=== PATIENT | female | born 1950 | race Caucasian/White ===

== ENCOUNTER → 2016-07-20 | Outpatient (CLI) | payer MEDICARE, OTHER ==
[~2016-07-20] MED LIST: ATENOLOL25 MG PO; BECONASE AQ NA42 MCG NAS; BONIVA150 MG PO; CALTRATE-600 W600 MG PO; CYCLOBENZAPRINE5 M1 PO; ESTROBLEND; EVENING PRIMROSE OIL PO; FLEXERIL 1010 MG/TAB PO; FLEXERIL5 MG PO; HCTZ 25MG25 MG PO; HYDROXYURE500 MG/CAP PO; K-99595 MG PO; LEVOTHYROXIN0.112 MG PO; LEVOXYL0.1 MG PO; MAGNESIUM200 MG PO; MOTRIN 600600 MG/TAB PO; MULTI VITAMINS1 TAB PO; MULTIVITAMIN1 TA1 PO; NORCO 325 MG-51 TAB PO; OSTEO-BI-FLEX 21 TAB PO; RITE AID KRILL500 MG PO; SINGULAIR 110 MG/TAB PO; VITAMIN D3400 IU PO; [UNRECOGNIZED DRUG - CODE]; [UNRECOGNIZED DRUG - OTHER]; [UNRECOGNIZED DRUG - OTHER]; [UNRECOGNIZED DRUG - OTHER]; [UNRECOGNIZED DRUG - OTHER]; [UNRECOGNIZED DRUG - OTHER] PO
[2016-07-20 11:27] LABS: ADD PATHOLOGY DIFF REVIEW NO
[2016-07-20 11:32] LABS: HEMOGLOBIN 12.9 g/dl (12.5-16.0); MEAN CELL VOLUME 92 fl (80.0-100.0); MEAN CORPUSCULAR HEMOGLOBIN 31 pg (27.0-31.0); MEAN CORPUSCULAR HGB CONC 33 g/dl (33.0-37.0); MEAN PLATELET VOLUME 9.7 fl (7.4-10.4); PLATELET COUNT 578 K/mm3 (130-400); REDCELL DISTRIBUTION WIDTH-CV 12.9 % (11.5-14.5); WHITE BLOOD COUNT 4.4 K/mm3 (4.8-10.8)
[2016-07-20 11:40] LABS: HEMATOCRIT 38.8 % (37.0-47.0)
[2016-07-20 11:48] LABS: ADJUSTED CALCIUM 9.1 mg/dL (8.4-10.2); ALBUMIN 4.7 gm/dL (3.5-5.0); BILIRUBIN,TOTAL 0.4 mg/dL (0.0-1.0); CALCIUM 9.7 mg/dL (8.4-10.2); CREATININE, serum 0.69 mg/dL (0.52-1.25); TOTAL PROTEIN 7.9 gm/dL (6.4-8.2)
[2016-07-22 15:57] LABS: BAND 1 % (0-10); EOSINOPHIL 4 % (0-4); NEUTROPHILS 62 % (42.0-75.2); PLATELET ESTIMATE NORMAL (NORMAL); TOTAL CELLS COUNTED 100
== END ==
LOC: COL.LAB 11:16
PROVIDERS: Internal Medicine
DX: M06.4 Inflammatory polyarthropathy (principal); Z79.899 Other long term (current) drug therapy; D47.Z9 Other specified neoplasms of uncertain behavior of lymphoid, hematopoietic and related tissue

== ENCOUNTER → 2016-08-17 | Outpatient (CLI) | payer MEDICARE, OTHER ==
[2016-08-17 11:15] LABS: ADD PATHOLOGY DIFF REVIEW NO
[2016-08-17 11:34] LABS: MEAN CELL VOLUME 91 fl (80.0-100.0); MEAN CORPUSCULAR HEMOGLOBIN 30 pg (27.0-31.0); MEAN CORPUSCULAR HGB CONC 33 g/dl (33.0-37.0)
[2016-08-17 11:46] LABS: HEMOGLOBIN 12.7 g/dl (12.5-16.0); MEAN PLATELET VOLUME 9.5 fl (7.4-10.4); PLATELET COUNT 581 K/mm3 (130-400); REDCELL DISTRIBUTION WIDTH-CV 12.9 % (11.5-14.5); WHITE BLOOD COUNT 4.5 K/mm3 (4.8-10.8)
[2016-08-17 11:48] LABS: HEMATOCRIT 38.4 % (37.0-47.0)
[2016-08-17 12:02] LABS: ADJUSTED CALCIUM 9.6 mg/dL (8.4-10.2); ALBUMIN 4.5 gm/dL (3.5-5.0); BILIRUBIN,TOTAL 0.5 mg/dL (0.0-1.0); CREATININE, serum 0.63 mg/dL (0.52-1.25); POTASSIUM 4.7 mmol/L (3.4-5.0); TOTAL PROTEIN 7.5 gm/dL (6.4-8.2)
[2016-08-17 12:08] LABS: BAND 1 % (0-10); BASOPHIL 3 % (0-2); EOSINOPHIL 9 % (0-4); NEUTROPHILS 56 % (42.0-75.2); PLATELET ESTIMATE INCREASED (NORMAL); TOTAL CELLS COUNTED 100
== END ==
LOC: COL.LAB 10:52
PROVIDERS: Internal Medicine
DX: D47.Z9 Other specified neoplasms of uncertain behavior of lymphoid, hematopoietic and related tissue (principal); M06.4 Inflammatory polyarthropathy; Z79.899 Other long term (current) drug therapy

== ENCOUNTER → 2016-09-28 | Outpatient (CLI) | payer MEDICARE, OTHER ==
[2016-09-28 11:51] LABS: ADD PATHOLOGY DIFF REVIEW NO
[2016-09-28 12:05] LABS: HEMOGLOBIN 13.9 g/dl (12.5-16.0); MEAN CELL VOLUME 93 fl (80.0-100.0); MEAN CORPUSCULAR HEMOGLOBIN 31 pg (27.0-31.0); MEAN CORPUSCULAR HGB CONC 33 g/dl (33.0-37.0); MEAN PLATELET VOLUME 9.5 fl (7.4-10.4); PLATELET COUNT 623 K/mm3 (130-400); RED BLOOD COUNT 4.51 M/mm3 (4.10-5.30); REDCELL DISTRIBUTION WIDTH-CV 13.7 % (11.5-14.5); WHITE BLOOD COUNT 10.1 K/mm3 (4.8-10.8)
[2016-09-28 12:09] LABS: ALBUMIN 4.3 gm/dL (3.5-5.0); BILIRUBIN,TOTAL 0.5 mg/dL (0.0-1.0); CALCIUM 9.2 mg/dL (8.4-10.2); CREATININE, serum 0.67 mg/dL (0.52-1.25); POTASSIUM 3.6 mmol/L (3.4-5.0); TOTAL PROTEIN 7.6 gm/dL (6.4-8.2)
[2016-09-28 12:12] LABS: HEMATOCRIT 41.9 % (37.0-47.0)
[2016-09-28 12:40] LABS: BASOPHIL 1 % (0-2); NEUTROPHILS 81 % (42.0-75.2); TOTAL CELLS COUNTED 100
[2016-09-28 12:41] LABS: EOSINOPHIL 0 % (0-4)
== END ==
LOC: COL.LAB 10:55
PROVIDERS: Internal Medicine
DX: M06.4 Inflammatory polyarthropathy (principal); Z79.899 Other long term (current) drug therapy; D47.Z9 Other specified neoplasms of uncertain behavior of lymphoid, hematopoietic and related tissue

== ENCOUNTER → 2016-10-12 | Outpatient (CLI) | payer MEDICARE ==
[2016-10-12 11:21] LABS: ADD PATHOLOGY DIFF REVIEW NO
[2016-10-12 11:34] LABS: HEMOGLOBIN 12.8 g/dl (12.5-16.0); MEAN CELL VOLUME 93 fl (80.0-100.0); MEAN CORPUSCULAR HEMOGLOBIN 31 pg (27.0-31.0); MEAN CORPUSCULAR HGB CONC 33 g/dl (33.0-37.0); MEAN PLATELET VOLUME 9.2 fl (7.4-10.4); PLATELET COUNT 523 K/mm3 (130-400); RED BLOOD COUNT 4.16 M/mm3 (4.10-5.30); WHITE BLOOD COUNT 6.9 K/mm3 (4.8-10.8)
[2016-10-12 11:43] LABS: HEMATOCRIT 38.5 % (37.0-47.0)
[2016-10-12 11:47] LABS: ADJUSTED CALCIUM 8.7 mg/dL (8.4-10.2); BILIRUBIN,TOTAL 0.6 mg/dL (0.0-1.0); CALCIUM 8.7 mg/dL (8.4-10.2); CREATININE, serum 0.6 mg/dL (0.52-1.25); POTASSIUM 3.8 mmol/L (3.4-5.0); TOTAL PROTEIN 6.6 gm/dL (6.4-8.2)
[2016-10-12 13:22] LABS: BAND 3 % (0-10); EOSINOPHIL 3 % (0-4); NEUTROPHILS 67 % (42.0-75.2); TOTAL CELLS COUNTED 100
[2016-10-12 13:23] LABS: HYPOCHROMIA 1+; STOMATOCYTE 1+
== END ==
LOC: COL.LAB 11:00
PROVIDERS: Family Medicine
DX: D47.1 Chronic myeloproliferative disease (principal); M06.4 Inflammatory polyarthropathy; Z79.899 Other long term (current) drug therapy

== ENCOUNTER → 2016-11-30 | Outpatient (CLI) | payer MEDICARE, OTHER ==
[2016-11-30 11:15] LABS: ADD PATHOLOGY DIFF REVIEW NO
[2016-11-30 11:24] LABS: HEMOGLOBIN 13.6 g/dl (12.5-16.0); MEAN CELL VOLUME 94 fl (80.0-100.0); MEAN CORPUSCULAR HEMOGLOBIN 31 pg (27.0-31.0); MEAN CORPUSCULAR HGB CONC 33 g/dl (33.0-37.0); MEAN PLATELET VOLUME 9.7 fl (7.4-10.4); PLATELET COUNT 461 K/mm3 (130-400); RED BLOOD COUNT 4.41 M/mm3 (4.10-5.30); REDCELL DISTRIBUTION WIDTH-CV 13.2 % (11.5-14.5); WHITE BLOOD COUNT 6.1 K/mm3 (4.8-10.8)
[2016-11-30 11:41] LABS: ADJUSTED CALCIUM 8.5 mg/dL (8.4-10.2); ALBUMIN 4.5 gm/dL (3.5-5.0); BILIRUBIN,TOTAL 0.6 mg/dL (0.0-1.0); CALCIUM 8.9 mg/dL (8.4-10.2); CREATININE, serum 0.6 mg/dL (0.52-1.25); POTASSIUM 3.8 mmol/L (3.4-5.0); TOTAL PROTEIN 7.5 gm/dL (6.4-8.2)
[2016-11-30 12:25] LABS: EOSINOPHIL 6 % (0-4); NEUTROPHILS 63 % (42.0-75.2); PLATELET ESTIMATE INCREASED (NORMAL); TOTAL CELLS COUNTED 100
[2016-11-30 13:47] LABS: HEMATOCRIT 41.6 % (37.0-47.0)
== END ==
LOC: COL.LAB 10-05 16:23
PROVIDERS: Internal Medicine
DX: M06.4 Inflammatory polyarthropathy (principal); Z79.899 Other long term (current) drug therapy

== ENCOUNTER → 2017-01-11 | Outpatient (CLI) | payer MEDICARE, OTHER ==
[2017-01-11 11:29] LABS: ADD PATHOLOGY DIFF REVIEW NO
[2017-01-11 11:46] LABS: MEAN CELL VOLUME 93 fl (80.0-100.0); MEAN CORPUSCULAR HEMOGLOBIN 31 pg (27.0-31.0)
[2017-01-11 11:52] LABS: HEMOGLOBIN 13.2 g/dl (12.5-16.0); MEAN CORPUSCULAR HGB CONC 33 g/dl (33.0-37.0); MEAN PLATELET VOLUME 9.9 fl (7.4-10.4); PLATELET COUNT 420 K/mm3 (130-400); RED BLOOD COUNT 4.27 M/mm3 (4.10-5.30); REDCELL DISTRIBUTION WIDTH-CV 13.1 % (11.5-14.5)
[2017-01-11 11:56] LABS: HEMATOCRIT 39.9 % (37.0-47.0)
[2017-01-11 12:17] LABS: ADJUSTED CALCIUM 9.1 mg/dL (8.4-10.2); ALBUMIN 4.6 gm/dL (3.5-5.0); BILIRUBIN,TOTAL 0.4 mg/dL (0.0-1.0); CALCIUM 9.6 mg/dL (8.4-10.2); CREATININE, serum 0.58 mg/dL (0.52-1.25); POTASSIUM 5.3 mmol/L (3.4-5.0); TOTAL PROTEIN 7.6 gm/dL (6.4-8.2)
[2017-01-11 12:20] LABS: EOSINOPHIL 11 % (0-4); NEUTROPHILS 42 % (42.0-75.2); PLATELET ESTIMATE NORMAL (NORMAL); TOTAL CELLS COUNTED 100
== END ==
LOC: COL.LAB 11:16
PROVIDERS: Internal Medicine
DX: Z51.81 Encounter for therapeutic drug level monitoring (principal); M06.4 Inflammatory polyarthropathy; C94.6 Myelodysplastic disease, not elsewhere classified; Z79.899 Other long term (current) drug therapy

== ENCOUNTER 2017-02-01 13:15 | Outpatient (RCR) | payer MEDICARE, OTHER | END 2017-02-06 12:47 | disposition still patient (30) | LOC: WSPT 13:15 | DX: M75.81 Other shoulder lesions, right shoulder (principal); M77.9 Enthesopathy, unspecified | CPT/HCPCS: G8984-GP; G8985-GP; G8986-GP; G8987-GO; G8988-GO; G8989-GO ==

== ENCOUNTER → 2017-02-16 | Outpatient (CLI) | payer MEDICARE, OTHER ==
[2017-02-16 11:23] LABS: ADD PATHOLOGY DIFF REVIEW NO
[2017-02-16 11:28] LABS: HEMOGLOBIN 12.1 g/dl (12.5-16.0); MEAN CELL VOLUME 93 fl (80.0-100.0); MEAN CORPUSCULAR HEMOGLOBIN 31 pg (27.0-31.0); MEAN CORPUSCULAR HGB CONC 33 g/dl (33.0-37.0); MEAN PLATELET VOLUME 9.8 fl (7.4-10.4); PLATELET COUNT 413 K/mm3 (130-400); REDCELL DISTRIBUTION WIDTH-CV 13.4 % (11.5-14.5); WHITE BLOOD COUNT 4.4 K/mm3 (4.8-10.8)
[2017-02-16 11:46] LABS: HEMATOCRIT 36.2 % (37.0-47.0)
[2017-02-16 12:04] LABS: BASOPHIL 2 % (0-2); EOSINOPHIL 11 % (0-4); NEUTROPHILS 46 % (42.0-75.2); TOTAL CELLS COUNTED 100
[2017-02-16 12:05] LABS: ANISOCYTOSIS 1+; PLATELET ESTIMATE NORMAL (NORMAL)
== END ==
LOC: COL.LAB 02-15 16:17
PROVIDERS: Internal Medicine
DX: C94.6 Myelodysplastic disease, not elsewhere classified (principal)

== ENCOUNTER → 2017-03-21 | Outpatient (CLI) | payer MEDICARE, OTHER ==
[2017-03-21 13:29] LABS: ADD PATHOLOGY DIFF REVIEW NO
[2017-03-21 13:41] LABS: MEAN CELL VOLUME 93 fl (80.0-100.0); MEAN CORPUSCULAR HEMOGLOBIN 31 pg (27.0-31.0); MEAN CORPUSCULAR HGB CONC 33 g/dl (33.0-37.0); MEAN PLATELET VOLUME 9.5 fl (7.4-10.4); PLATELET COUNT 481 K/mm3 (130-400); RED BLOOD COUNT 3.86 M/mm3 (4.10-5.30); REDCELL DISTRIBUTION WIDTH-CV 13.6 % (11.5-14.5); WHITE BLOOD COUNT 5.8 K/mm3 (4.8-10.8)
[2017-03-21 13:55] LABS: ALANINE AMINOTRANSFERASE 35 U/L (9-52); ALBUMIN 4.8 gm/dL (3.5-5.0); ALKALINE PHOSPHATASE 81 U/L (50-136); ANION GAP 10 mmol/L (7-16); BILIRUBIN,TOTAL 0.5 mg/dL (0.0-1.0); BLOOD UREA NITROGEN 4 mg/dL (7-17); CALCIUM 9.6 mg/dL (8.4-10.2); CARBON DIOXIDE 27 mmol/L (22-30); CHLORIDE 99 mmol/L (98-107); CREATININE, serum 0.57 mg/dL (0.52-1.25); GLUCOSE 89 mg/dL (74-106); POTASSIUM 4.5 mmol/L (3.4-5.0); SODIUM 136 mmol/L (137-145); TOTAL PROTEIN 7.7 gm/dL (6.4-8.2)
[2017-03-21 14:00] LABS: C-REACTIVE PROTEIN < 0.5 mg/dL (0.0-0.9)
[2017-03-21 14:06] LABS: ERYTHROCYTE SEDIMENTATION RATE 9 mm/hr (0-30)
[2017-03-21 14:20] LABS: BAND 1 % (0-10); BASOPHIL 2 % (0-2); EOSINOPHIL 9 % (0-4); NEUTROPHILS 46 % (42.0-75.2); PLATELET ESTIMATE INCREASED (NORMAL); TOTAL CELLS COUNTED 100
[2017-03-21 14:22] LABS: OVALOCYTES 1+
== END ==
LOC: COL.LAB 13:03
PROVIDERS: Internal Medicine
DX: D47.1 Chronic myeloproliferative disease (principal)

== ENCOUNTER → 2017-05-30 | Outpatient (CLI) | payer MEDICARE, OTHER ==
[2017-05-30 12:06] LABS: ADD PATHOLOGY DIFF REVIEW NO
[2017-05-30 12:18] LABS: MEAN CELL VOLUME 98 fl (80.0-100.0); MEAN CORPUSCULAR HGB CONC 34 g/dl (33.0-37.0); MEAN PLATELET VOLUME 9.3 fl (7.4-10.4); PLATELET COUNT 472 K/mm3 (130-400); RED BLOOD COUNT 3.48 M/mm3 (4.10-5.30); WHITE BLOOD COUNT 4.2 K/mm3 (4.8-10.8)
[2017-05-30 12:19] LABS: HEMOGLOBIN 11.6 g/dl (12.5-16.0); MEAN CORPUSCULAR HEMOGLOBIN 33 pg (27.0-31.0)
[2017-05-30 12:24] LABS: HEMATOCRIT 34.1 % (37.0-47.0)
[2017-05-30 12:35] LABS: EOSINOPHIL 3 % (0-4); LYMPHOCYTE 44 % (20.0-51.0); NEUTROPHILS 48 % (42.0-75.2); PLATELET ESTIMATE INCREASED (NORMAL); TOTAL CELLS COUNTED 100
[2017-05-30 12:43] LABS: ERYTHROCYTE SEDIMENTATION RATE 6 mm/hr (0-30)
[2017-05-30 12:51] LABS: ADJUSTED CALCIUM 8.6 mg/dL (8.4-10.2); ALANINE AMINOTRANSFERASE 37 U/L (9-52); ALBUMIN 4.9 gm/dL (3.5-5.0); ALKALINE PHOSPHATASE 89 U/L (50-136); ANION GAP 11 mmol/L (7-16); BILIRUBIN,TOTAL 0.2 mg/dL (0.0-1.0); BLOOD UREA NITROGEN 7 mg/dL (7-17); C-REACTIVE PROTEIN < 0.5 mg/dL (0.0-0.9); CALCIUM 9.3 mg/dL (8.4-10.2); CARBON DIOXIDE 26 mmol/L (22-30); CHLORIDE 95 mmol/L (98-107); CREATININE, serum 0.62 mg/dL (0.52-1.25); GLUCOSE 104 mg/dL (74-106); POTASSIUM 4.1 mmol/L (3.4-5.0); SODIUM 132 mmol/L (137-145); TOTAL PROTEIN 7.6 gm/dL (6.4-8.2)
== END ==
LOC: COL.LAB 11:53
PROVIDERS: Internal Medicine
DX: C94.6 Myelodysplastic disease, not elsewhere classified (principal)

== ENCOUNTER → 2017-07-18 | Outpatient (CLI) | payer MEDICARE, OTHER ==
[2017-07-18 13:39] LABS: HEMOGLOBIN 12.6 g/dl (12.5-16.0); MEAN CELL VOLUME 99 fl (80.0-100.0); MEAN CORPUSCULAR HEMOGLOBIN 33 pg (27.0-31.0); MEAN CORPUSCULAR HGB CONC 34 g/dl (33.0-37.0); MEAN PLATELET VOLUME 8.9 fl (7.4-10.4); PLATELET COUNT 387 K/mm3 (130-400); REDCELL DISTRIBUTION WIDTH-CV 12.4 % (11.5-14.5)
[2017-07-18 13:47] LABS: HEMATOCRIT 37.6 % (37.0-47.0)
[2017-07-18 13:52] LABS: ALANINE AMINOTRANSFERASE 27 U/L (9-52); ALBUMIN 4.9 gm/dL (3.5-5.0); ALKALINE PHOSPHATASE 73 U/L (50-136); ANION GAP 10 mmol/L (7-16); AST,SGOT 25 U/L (15-37); BILIRUBIN,TOTAL 0.3 mg/dL (0.0-1.0); BLOOD UREA NITROGEN 10 mg/dL (7-17); CALCIUM 9.2 mg/dL (8.4-10.2); CARBON DIOXIDE 27 mmol/L (22-30); CHLORIDE 98 mmol/L (98-107); CREATININE, serum 0.72 mg/dL (0.52-1.25); GLUCOSE 110 mg/dL (74-106); POTASSIUM 4.1 mmol/L (3.4-5.0); SODIUM 135 mmol/L (137-145); TOTAL PROTEIN 7.7 gm/dL (6.4-8.2)
[2017-07-18 13:55] LABS: C-REACTIVE PROTEIN < 0.5 mg/dL (0.0-0.9)
[2017-07-18 14:21] LABS: BAND 11 % (0-10); ERYTHROCYTE SEDIMENTATION RATE 6 mm/hr (0-30); LYMPHOCYTE 48 % (20.0-51.0); NEUTROPHILS 41 % (42.0-75.2); NUCLEATED RED BLOOD CELL 1 (0-6)
[2017-07-18 14:22] LABS: OVALOCYTES 1+; PLATELET ESTIMATE INCREASED (NORMAL)
== END ==
LOC: COL.LAB 06-13 10:36
PROVIDERS: Internal Medicine
DX: M06.4 Inflammatory polyarthropathy (principal); Z79.899 Other long term (current) drug therapy

== ENCOUNTER → 2017-08-15 | Outpatient (CLI) | payer MEDICARE, OTHER ==
[2017-08-15 11:37] LABS: HEMOGLOBIN 12.9 g/dl (12.5-16.0); MEAN CELL VOLUME 99 fl (80.0-100.0); MEAN CORPUSCULAR HEMOGLOBIN 33 pg (27.0-31.0); MEAN CORPUSCULAR HGB CONC 33 g/dl (33.0-37.0); MEAN PLATELET VOLUME 9.2 fl (7.4-10.4); PLATELET COUNT 408 K/mm3 (130-400); RED BLOOD COUNT 3.91 M/mm3 (4.10-5.30); REDCELL DISTRIBUTION WIDTH-CV 12.4 % (11.5-14.5)
[2017-08-15 11:40] LABS: HEMATOCRIT 38.6 % (37.0-47.0)
[2017-08-15 11:56] LABS: ALANINE AMINOTRANSFERASE 33 U/L (9-52); ALBUMIN 4.8 gm/dL (3.5-5.0); ALKALINE PHOSPHATASE 77 U/L (50-136); ANION GAP 11 mmol/L (7-16); AST,SGOT 37 U/L (15-37); BILIRUBIN,TOTAL 0.3 mg/dL (0.0-1.0); BLOOD UREA NITROGEN 9 mg/dL (7-17); CALCIUM 9.2 mg/dL (8.4-10.2); CARBON DIOXIDE 26 mmol/L (22-30); CHLORIDE 94 mmol/L (98-107); CREATININE, serum 0.69 mg/dL (0.52-1.25); EOSINOPHIL 1 % (0-4); GLUCOSE 105 mg/dL (74-106); LYMPHOCYTE 33 % (20.0-51.0); NEUTROPHILS 61 % (42.0-75.2); PLATELET ESTIMATE INCREASED (NORMAL); POTASSIUM 3.9 mmol/L (3.4-5.0); SODIUM 131 mmol/L (137-145); TOTAL PROTEIN 7.5 gm/dL (6.4-8.2)
[2017-08-15 11:57] LABS: C-REACTIVE PROTEIN < 0.5 mg/dL (0.0-0.9)
[2017-08-15 12:07] LABS: ERYTHROCYTE SEDIMENTATION RATE 2 mm/hr (0-30)
== END ==
LOC: COL.LAB 11:09
PROVIDERS: Internal Medicine
DX: Z01.89 Encounter for other specified special examinations (principal)

== ENCOUNTER → 2017-09-19 | Outpatient (CLI) | payer MEDICARE, OTHER ==
[2017-09-19 11:51] LABS: MEAN CELL VOLUME 96 fl (80.0-100.0); MEAN CORPUSCULAR HGB CONC 35 g/dl (33.0-37.0); MEAN PLATELET VOLUME 9.4 fl (7.4-10.4); PLATELET COUNT 386 K/mm3 (130-400); REDCELL DISTRIBUTION WIDTH-CV 12.5 % (11.5-14.5)
[2017-09-19 11:58] LABS: HEMOGLOBIN 11.9 g/dl (12.5-16.0); MEAN CORPUSCULAR HEMOGLOBIN 33 pg (27.0-31.0)
[2017-09-19 12:00] LABS: HEMATOCRIT 34.5 % (37.0-47.0)
[2017-09-19 12:31] LABS: ERYTHROCYTE SEDIMENTATION RATE 1 mm/hr (0-30)
[2017-09-19 12:45] LABS: BASOPHIL 1 % (0-2); EOSINOPHIL 2 % (0-4); LYMPHOCYTE 44 % (20.0-51.0); NEUTROPHILS 49 % (42.0-75.2); PLATELET ESTIMATE NORMAL (NORMAL)
[2017-09-19 13:02] LABS: ALANINE AMINOTRANSFERASE 41 U/L (9-52); ALBUMIN 4.5 gm/dL (3.5-5.0); ALKALINE PHOSPHATASE 76 U/L (50-136); ANION GAP 13 mmol/L (7-16); AST,SGOT 35 U/L (15-37); BILIRUBIN,TOTAL 0.1 mg/dL (0.0-1.0); BLOOD UREA NITROGEN 7 mg/dL (7-17); CALCIUM 8.9 mg/dL (8.4-10.2); CARBON DIOXIDE 26 mmol/L (22-30); CHLORIDE 95 mmol/L (98-107); CREATININE, serum 0.58 mg/dL (0.52-1.25); GLUCOSE 93 mg/dL (74-106); SODIUM 134 mmol/L (137-145); TOTAL PROTEIN 7.5 gm/dL (6.4-8.2)
[2017-09-19 13:04] LABS: C-REACTIVE PROTEIN < 0.5 mg/dL (0.0-0.9); POTASSIUM 4.2 mmol/L (3.4-5.0)
== END ==
LOC: COL.LAB 09:43
PROVIDERS: Internal Medicine
DX: M06.4 Inflammatory polyarthropathy (principal); Z79.899 Other long term (current) drug therapy

== ENCOUNTER → 2017-10-10 | Outpatient (CLI) | payer MEDICARE, OTHER ==
[2017-10-10 11:53] LABS: HEMOGLOBIN 12.1 g/dl (12.5-16.0); MEAN CELL VOLUME 95 fl (80.0-100.0); MEAN CORPUSCULAR HEMOGLOBIN 33 pg (27.0-31.0); MEAN CORPUSCULAR HGB CONC 35 g/dl (33.0-37.0); MEAN PLATELET VOLUME 9.4 fl (7.4-10.4); PLATELET COUNT 455 K/mm3 (130-400); RED BLOOD COUNT 3.68 M/mm3 (4.10-5.30); REDCELL DISTRIBUTION WIDTH-CV 12.5 % (11.5-14.5)
[2017-10-10 12:07] LABS: EOSINOPHIL 1 % (0-4); LYMPHOCYTE 37 % (20.0-51.0); NEUTROPHILS 54 % (42.0-75.2); PLATELET ESTIMATE NORMAL (NORMAL)
[2017-10-10 12:08] LABS: ANISOCYTOSIS 1+
[2017-10-10 12:10] LABS: ALANINE AMINOTRANSFERASE 35 U/L (9-52); ALBUMIN 4.4 gm/dL (3.5-5.0); ALKALINE PHOSPHATASE 75 U/L (50-136); ANION GAP 13 mmol/L (7-16); AST,SGOT 38 U/L (15-37); BILIRUBIN,TOTAL 0.1 mg/dL (0.0-1.0); BLOOD UREA NITROGEN 5 mg/dL (7-17); CALCIUM 8.8 mg/dL (8.4-10.2); CARBON DIOXIDE 25 mmol/L (22-30); CHLORIDE 94 mmol/L (98-107); GLUCOSE 119 mg/dL (74-106); POTASSIUM 4.8 mmol/L (3.4-5.0); SODIUM 132 mmol/L (137-145); TOTAL PROTEIN 7.8 gm/dL (6.4-8.2)
[2017-10-10 12:15] LABS: C-REACTIVE PROTEIN < 0.5 mg/dL (0.0-0.9)
[2017-10-10 12:19] LABS: ERYTHROCYTE SEDIMENTATION RATE 5 mm/hr (0-30)
== END ==
LOC: COL.LAB 11:11
PROVIDERS: Internal Medicine
DX: M06.4 Inflammatory polyarthropathy (principal); Z79.899 Other long term (current) drug therapy

== ENCOUNTER → 2017-11-14 | Outpatient (CLI) | payer MEDICARE, OTHER ==
[2017-11-14 11:52] LABS: HEMOGLOBIN 12.3 g/dl (12.5-16.0); MEAN CELL VOLUME 95 fl (80.0-100.0); MEAN CORPUSCULAR HEMOGLOBIN 33 pg (27.0-31.0); MEAN CORPUSCULAR HGB CONC 35 g/dl (33.0-37.0); MEAN PLATELET VOLUME 9.3 fl (7.4-10.4); PLATELET COUNT 487 K/mm3 (130-400); RED BLOOD COUNT 3.75 M/mm3 (4.10-5.30); REDCELL DISTRIBUTION WIDTH-CV 12.6 % (11.5-14.5)
[2017-11-14 12:00] LABS: HEMATOCRIT 35.6 % (37.0-47.0)
[2017-11-14 12:10] LABS: ALANINE AMINOTRANSFERASE 33 U/L (9-52); ALBUMIN 4.5 gm/dL (3.5-5.0); ALKALINE PHOSPHATASE 64 U/L (50-136); ANION GAP 11 mmol/L (7-16); AST,SGOT 38 U/L (15-37); BILIRUBIN,TOTAL 0.3 mg/dL (0.0-1.0); BLOOD UREA NITROGEN 10 mg/dL (7-17); CALCIUM 9.3 mg/dL (8.4-10.2); CARBON DIOXIDE 27 mmol/L (22-30); CHLORIDE 93 mmol/L (98-107); CREATININE, serum 0.66 mg/dL (0.52-1.25); GLUCOSE 112 mg/dL (74-106); POTASSIUM 4.4 mmol/L (3.4-5.0); SODIUM 132 mmol/L (137-145); TOTAL PROTEIN 7.8 gm/dL (6.4-8.2)
[2017-11-14 12:13] LABS: C-REACTIVE PROTEIN < 0.5 mg/dL (0.0-0.9)
[2017-11-14 13:04] LABS: BAND 3 % (0-10); HYPOCHROMIA 1+; LYMPHOCYTE 38 % (20.0-51.0); NEUTROPHILS 54 % (42.0-75.2); OVALOCYTES 1+; PLATELET ESTIMATE INCREASED (NORMAL)
[2017-11-14 13:10] LABS: ERYTHROCYTE SEDIMENTATION RATE 1 mm/hr (0-30)
== END ==
LOC: COL.LAB 11-07 11:20
PROVIDERS: Internal Medicine
DX: M06.4 Inflammatory polyarthropathy (principal); Z79.899 Other long term (current) drug therapy

== ENCOUNTER → 2017-12-05 | Outpatient (CLI) | payer MEDICARE, OTHER ==
[2017-12-05 11:54] LABS: MEAN CELL VOLUME 96 fl (80.0-100.0); MEAN CORPUSCULAR HEMOGLOBIN 33 pg (27.0-31.0); MEAN CORPUSCULAR HGB CONC 34 g/dl (33.0-37.0); MEAN PLATELET VOLUME 9.3 fl (7.4-10.4); PLATELET COUNT 539 K/mm3 (130-400); RED BLOOD COUNT 3.67 M/mm3 (4.10-5.30); REDCELL DISTRIBUTION WIDTH-CV 12.5 % (11.5-14.5)
[2017-12-05 12:02] LABS: HEMATOCRIT 35.1 % (37.0-47.0)
[2017-12-05 12:07] LABS: ALANINE AMINOTRANSFERASE 32 U/L (9-52); ALBUMIN 4.3 gm/dL (3.5-5.0); ALKALINE PHOSPHATASE 64 U/L (50-136); ANION GAP 15 mmol/L (7-16); AST,SGOT 30 U/L (15-37); BILIRUBIN,TOTAL 0.2 mg/dL (0.0-1.0); BLOOD UREA NITROGEN 7 mg/dL (7-17); CALCIUM 8.6 mg/dL (8.4-10.2); CARBON DIOXIDE 23 mmol/L (22-30); CHLORIDE 94 mmol/L (98-107); CREATININE, serum 0.57 mg/dL (0.52-1.25); GLUCOSE 132 mg/dL (74-106); POTASSIUM 3.8 mmol/L (3.4-5.0); SODIUM 132 mmol/L (137-145); TOTAL PROTEIN 7.4 gm/dL (6.4-8.2)
[2017-12-05 12:09] LABS: C-REACTIVE PROTEIN < 0.5 mg/dL (0.0-0.9)
[2017-12-05 12:13] LABS: BAND 1 % (0-10); EOSINOPHIL 5 % (0-4); LYMPHOCYTE 23 % (20.0-51.0); NEUTROPHILS 68 % (42.0-75.2); PLATELET ESTIMATE INCREASED (NORMAL)
[2017-12-05 12:15] LABS: ERYTHROCYTE SEDIMENTATION RATE 1 mm/hr (0-30)
== END ==
LOC: COL.LAB 11:24
PROVIDERS: Internal Medicine
DX: M06.4 Inflammatory polyarthropathy (principal); Z79.899 Other long term (current) drug therapy

== ENCOUNTER → 2018-01-09 | Outpatient (CLI) | payer MEDICARE, OTHER ==
[2018-01-09 11:29] LABS: MEAN CELL VOLUME 96 fl (80.0-100.0); MEAN CORPUSCULAR HEMOGLOBIN 33 pg (27.0-31.0); MEAN CORPUSCULAR HGB CONC 34 g/dl (33.0-37.0); MEAN PLATELET VOLUME 9.3 fl (7.4-10.4); PLATELET COUNT 445 K/mm3 (130-400); RED BLOOD COUNT 3.66 M/mm3 (4.10-5.30); REDCELL DISTRIBUTION WIDTH-CV 12.5 % (11.5-14.5)
[2018-01-09 11:40] LABS: ALBUMIN 4.6 gm/dL (3.5-5.0); BILIRUBIN,TOTAL 0.2 mg/dL (0.0-1.0); C-REACTIVE PROTEIN 0.6 mg/dL (0.0-0.9); CALCIUM 9.1 mg/dL (8.4-10.2); CREATININE, serum 0.58 mg/dL (0.52-1.25); TOTAL PROTEIN 7.4 gm/dL (6.4-8.2)
[2018-01-09 11:52] LABS: EOSINOPHIL 2 % (0-4); LYMPHOCYTE 32 % (20.0-51.0); NEUTROPHILS 58 % (42.0-75.2); PLATELET ESTIMATE NORMAL (NORMAL)
[2018-01-09 11:53] LABS: ERYTHROCYTE SEDIMENTATION RATE 1 mm/hr (0-30)
[2018-01-09 14:57] LABS: HEMATOCRIT 35.1 % (37.0-47.0)
== END ==
LOC: COL.LAB 11:01
PROVIDERS: Internal Medicine Rheumatology
DX: M06.4 Inflammatory polyarthropathy (principal); Z79.899 Other long term (current) drug therapy

== ENCOUNTER → 2018-02-06 | Outpatient (CLI) | payer MEDICARE, OTHER ==
[2018-02-06 11:44] LABS: MEAN CELL VOLUME 95 fl (80.0-100.0); MEAN CORPUSCULAR HEMOGLOBIN 33 pg (27.0-31.0); MEAN CORPUSCULAR HGB CONC 34 g/dl (33.0-37.0); MEAN PLATELET VOLUME 9.4 fl (7.4-10.4); PLATELET COUNT 391 K/mm3 (130-400); RED BLOOD COUNT 3.69 M/mm3 (4.10-5.30); REDCELL DISTRIBUTION WIDTH-CV 12.6 % (11.5-14.5)
[2018-02-06 11:49] LABS: HEMATOCRIT 34.9 % (37.0-47.0)
[2018-02-06 12:35] LABS: BAND 1 % (0-10); EOSINOPHIL 3 % (0-4); HYPOCHROMIA 1+; LYMPHOCYTE 41 % (20.0-51.0); NEUTROPHILS 55 % (42.0-75.2); PLATELET ESTIMATE NORMAL (NORMAL)
== END ==
LOC: COL.LAB 10:50
PROVIDERS: Internal Medicine
DX: D47.1 Chronic myeloproliferative disease (principal)

== ENCOUNTER → 2018-02-27 | Outpatient (CLI) | payer MEDICARE, OTHER ==
[2018-02-27 12:24] LABS: HEMOGLOBIN 12.3 g/dl (12.5-16.0); MEAN CELL VOLUME 95 fl (80.0-100.0); MEAN CORPUSCULAR HEMOGLOBIN 32 pg (27.0-31.0); MEAN CORPUSCULAR HGB CONC 34 g/dl (33.0-37.0); MEAN PLATELET VOLUME 9.1 fl (7.4-10.4); PLATELET COUNT 451 K/mm3 (130-400); RED BLOOD COUNT 3.81 M/mm3 (4.10-5.30); REDCELL DISTRIBUTION WIDTH-CV 12.5 % (11.5-14.5)
[2018-02-27 12:48] LABS: BAND 4 % (0-10); EOSINOPHIL 4 % (0-4); LYMPHOCYTE 32 % (20.0-51.0); NEUTROPHILS 55 % (42.0-75.2); PLATELET ESTIMATE NORMAL (NORMAL)
== END ==
LOC: COL.LAB 12:01
PROVIDERS: Internal Medicine
DX: Z01.89 Encounter for other specified special examinations (principal)

== ENCOUNTER → 2018-05-08 | Outpatient (CLI) | payer MEDICARE, OTHER ==
[2018-05-08 13:24] LABS: HEMOGLOBIN 12.2 g/dl (12.5-16.0); MEAN CELL VOLUME 100 fl (80.0-100.0); MEAN CORPUSCULAR HEMOGLOBIN 33 pg (27.0-31.0); MEAN CORPUSCULAR HGB CONC 33 g/dl (33.0-37.0); MEAN PLATELET VOLUME 9.1 fl (7.4-10.4); PLATELET COUNT 563 K/mm3 (130-400); REDCELL DISTRIBUTION WIDTH-CV 13.2 % (11.5-14.5)
[2018-05-08 13:43] LABS: BAND 46 % (0-10); BASOPHIL 1 % (0-2); EOSINOPHIL 4 % (0-4); LYMPHOCYTE 11 % (20.0-51.0); NEUTROPHILS 13 % (42.0-75.2); PLATELET ESTIMATE INCREASED (NORMAL)
== END ==
LOC: COL.LAB 13:02
PROVIDERS: Internal Medicine
DX: D47.1 Chronic myeloproliferative disease (principal)

== ENCOUNTER 2018-06-05 15:24 | Outpatient (CLI) | payer MEDICARE, OTHER ==
[~2018-06-05] VITALS: Ht 157.5 cm; Wt 73.5 kg
[2018-06-05 15:49] VITALS: BP 142/85; PULSE 73; TEMP 98.1
[2018-06-05] MEDS ORDERED: COZAAR 50MG50 MG/TAB PO (16:30)
[2018-06-05] MEDS ORDERED: NEURONTIN300 MG/CAP PO (16:38)
== END 2018-06-05 17:12 | disposition home or self-care (01) ==
LOC: EUO 15:24
DX: M81.0 Age-related osteoporosis without current pathological fracture (principal)
CPT/HCPCS: J3489

== ENCOUNTER → 2018-06-11 | Outpatient (CLI) | payer MEDICARE, OTHER ==
[~2018-06-11] MED LIST changes: +COZAAR 50MG50 MG/TAB PO; +NEURONTIN300 MG/CAP PO
== END ==
LOC: MC.RAD 04-30 13:20
DX: Z12.31 Encounter for screening mammogram for malignant neoplasm of breast (principal)

== ENCOUNTER 2019-06-16 14:21 | Outpatient (CLI) | payer MEDICARE, OTHER ==
[~2019-06-16] VITALS: Ht 157.5 cm; Wt 70.4 kg
[~2019-06-16 14:21] MED LIST changes: -LEVOXYL0.1 MG PO; +LEVOXYL0.2 MG PO; +MAG-OX 400400 MG/TAB PO; -MAGNESIUM200 MG PO
[2019-06-16 14:38] VITALS: BP 143/78; PULSE 90; TEMP 98.1
== END 2019-06-16 15:30 | disposition home or self-care (01) ==
LOC: EUO 14:21
DX: M81.0 Age-related osteoporosis without current pathological fracture (principal)
CPT/HCPCS: J3489

== ENCOUNTER → 2019-11-27 | Outpatient (CLI) | payer MEDICARE, OTHER | LOC: MC.RAD 13:00 | DX: Z12.31 Encounter for screening mammogram for malignant neoplasm of breast (principal) ==

== ENCOUNTER 2020-05-20 15:46 | Outpatient (CLI) | payer MEDICARE, OTHER ==
[2020-05-20 17:02] VITALS: BP 136/81; PULSE 82; TEMP 98.8
== END 2020-05-20 19:20 | disposition home or self-care (01) ==
LOC: EUO 15:46
DX: M81.0 Age-related osteoporosis without current pathological fracture (principal)
CPT/HCPCS: J3489

== ENCOUNTER 2020-05-21 13:00 | Outpatient (RCR) | payer MEDICARE, OTHER | END 2020-05-24 | disposition home or self-care (01) | LOC: WSPT | DX: M75.21 Bicipital tendinitis, right shoulder (principal); Z98.890 Other specified postprocedural states | CPT/HCPCS: G0283-GP ==

== ENCOUNTER 2020-06-10 13:00 | Outpatient (RCR) | payer MEDICARE, OTHER | END 2020-07-05 | disposition home or self-care (01) | LOC: WSPT | DX: M67.88 Other specified disorders of synovium and tendon, other site (principal); Z98.890 Other specified postprocedural states ==

== ENCOUNTER 2020-11-10 14:18 | Outpatient (RCR) | payer MEDICARE, OTHER | END 2020-11-10 14:19 | disposition home or self-care (01) | LOC: WSPT 14:18 | DX: Z98.890 Other specified postprocedural states (principal) ==

== ENCOUNTER → 2021-02-09 | Outpatient (CLI) | payer MEDICARE, OTHER | LOC: MC.RAD 13:05 | DX: Z12.31 Encounter for screening mammogram for malignant neoplasm of breast (principal) ==

== ENCOUNTER 2021-05-20 13:51 | Outpatient (CLI) | payer MEDICARE, OTHER ==
[~2021-05-20] VITALS: Ht 157.5 cm; Wt 75.0 kg
[2021-05-20 14:13] VITALS: BP 131/69; PULSE 66; TEMP 98
== END 2021-05-20 15:10 | disposition home or self-care (01) ==
LOC: EUO 13:51
DX: M81.0 Age-related osteoporosis without current pathological fracture (principal)
CPT/HCPCS: J3489

== ENCOUNTER → 2022-03-16 | Outpatient (CLI) | payer MEDICARE, OTHER | LOC: MC.RAD 11:26 | DX: Z12.31 Encounter for screening mammogram for malignant neoplasm of breast (principal) ==

== ENCOUNTER → 2022-03-24 | Outpatient (CLI) | payer MEDICARE, OTHER | LOC: COL.VAS 11:10 | DX: R06.02 Shortness of breath (principal) ==

== ENCOUNTER 2022-09-20 14:15 | Outpatient (RCR) | payer MEDICARE, OTHER | END 2022-09-29 13:18 | disposition home or self-care (01) | LOC: PT.GENESIS 14:15 | DX: S43.432D Superior glenoid labrum lesion of left shoulder, subsequent encounter (principal); M75.22 Bicipital tendinitis, left shoulder; M75.42 Impingement syndrome of left shoulder; X58.XXXD Exposure to other specified factors, subsequent encounter ==

== ENCOUNTER → 2022-09-29 | Outpatient (RCR) | payer MEDICARE, OTHER | LOC: PT.GENESIS | DX: Z98.890 Other specified postprocedural states (principal) ==

== ENCOUNTER 2022-10-26 11:15 | Outpatient (RCR) | payer MEDICARE, OTHER | END 2022-10-29 | disposition home or self-care (01) | LOC: PT.GENESIS | DX: S43.432D Superior glenoid labrum lesion of left shoulder, subsequent encounter (principal); M75.42 Impingement syndrome of left shoulder; M75.22 Bicipital tendinitis, left shoulder; X58.XXXD Exposure to other specified factors, subsequent encounter ==

== ENCOUNTER 2023-03-20 09:33 | Outpatient (RCR) | payer MEDICARE, OTHER | END 2023-03-30 15:01 | disposition home or self-care (01) | LOC: PT.GENESIS 09:33 | DX: M54.16 Radiculopathy, lumbar region (principal) ==

== ENCOUNTER 2023-06-27 09:00 | Outpatient (RCR) | payer MEDICARE, OTHER | END 2023-07-01 | disposition home or self-care (01) | LOC: PT.GENESIS | DX: Z98.890 Other specified postprocedural states (principal) ==

== ENCOUNTER 2023-07-26 12:51 | Outpatient (CLI) | payer MEDICARE, OTHER ==
[~2023-07-26] VITALS: Ht 157.5 cm; Wt 71.4 kg
[~2023-07-26 12:51] MED LIST changes: -K-99595 MG PO; +NATURAL POTASS595 MG PO; +VITAMIN D 400400 IU PO; -VITAMIN D3400 IU PO
[2023-07-26 13:14] VITALS: BP 131/76; PULSE 85; TEMP 97.7
[2023-07-26] MEDS ORDERED: ASPIRIN E.C. 8181 MG PO (13:26)
[2023-07-26] MEDS ORDERED: VITAMIN C500 MG PO (13:28)
[2023-07-26] MEDS ORDERED: B-12 500 MCG PO (13:28)
[2023-07-26] MEDS ORDERED: TURMERIC500 MG PO (13:28)
[2023-07-26] MEDS ORDERED: MULTIVITAMIN FO1 CAP PO (13:29)
[2023-07-26] MEDS ORDERED: LYRICA 25MG CAP25 MG PO (13:38)
[2023-07-26] MEDS ORDERED: CLARITIN 1010 MG/TAB PO (13:38)
[2023-07-26] MEDS ORDERED: RECLAST5 MG/100 M IV (13:39)
[2023-07-26] MEDS ORDERED: BLACK CURRANT OIL PO (13:55)
--- NOTE | 2023-07-26 13:56 | NUR ---
Pt tolerated reclast infusion without issue. IV DC'd, site wrapped with coban. Pt exits dept with steady gait. No complaints at time of discharge.
== END 2023-07-26 14:00 | disposition home or self-care (01) ==
LOC: EUO 12:51
DX: M81.0 Age-related osteoporosis without current pathological fracture (principal)
CPT/HCPCS: J3489

== ENCOUNTER 2023-07-31 09:45 | Outpatient (RCR) | payer MEDICARE, OTHER ==
[~2023-07-31 09:45] MED LIST changes: +ASPIRIN E.C. 8181 MG PO; +B-12 500 MCG PO; +BLACK CURRANT OIL PO; +CLARITIN 1010 MG/TAB PO; +LYRICA 25MG CAP25 MG PO; +MULTIVITAMIN FO1 CAP PO; +RECLAST5 MG/100 M IV; +TURMERIC500 MG PO; +VITAMIN C500 MG PO
== END 2023-08-01 | disposition home or self-care (01) ==
LOC: PT.GENESIS
DX: Z98.890 Other specified postprocedural states (principal); Z98.1 Arthrodesis status

== ENCOUNTER → 2023-08-30 | Outpatient (RCR) | payer MEDICARE, OTHER | END | disposition home or self-care (01) | LOC: PT.GENESIS | DX: Z98.890 Other specified postprocedural states (principal); R53.1 Weakness ==